=== PATIENT | male | born 1960 | race Caucasian/White ===

== ENCOUNTER 2017-09-03 07:38 | Day surgery (SDC) | payer MEDICARE, OTHER ==
[2017-09-03] MEDS ORDERED: PROPOFOL 20 ML (09:54)
[2017-09-03] MEDS ORDERED: LIDOCAINE 2% (SDV) 5 ML INJ (09:54)
== END 2017-09-03 11:17 | disposition home or self-care (01) ==
LOC: GIL 07:38
DX: Z12.11 Encounter for screening for malignant neoplasm of colon (principal); D12.5 Benign neoplasm of sigmoid colon; K64.8 Other hemorrhoids; I10 Essential (primary) hypertension
CPT/HCPCS: 45385; 88305